=== PATIENT | female | born 1940 | race Caucasian/White ===

== ENCOUNTER 2023-12-10 20:16 | Emergency (ER) | payer MEDICARE, BC ==
[~2023-12-10] VITALS: Ht 165.1 cm; Wt 68.0 kg
[2023-12-10 20:30] VITALS: O2SAT 97
[2023-12-10 21:10] LABS: BASOPHILS # (AUTO) 0.1 K/UL (0.0-0.2); BASOPHILS % (AUTO) 0.4 % (0.0-2.0); EOSINOPHILS # (AUTO) 0.2 K/uL (0.0-0.7); EOSINOPHILS % (AUTO) 1.4 % (0.0-7.0); HEMATOCRIT 49.2 % (31.2-41.9); LYMPHOCYTES # (AUTO) 2.7 K/uL (0.8-4.8); LYMPHOCYTES % (AUTO) 20.9 % (20.5-51.5); MEAN CORPUSCULAR HEMOGLOBIN 25.4 uug (24.7-32.8); MEAN CORPUSCULAR HGB CONC 33 g/dL (32.3-35.6); MONOCYTES # (AUTO) 1.3 K/uL (0.1-1.30); MONOCYTES % (AUTO) 10.1 % (0.0-11.0); NEUTROPHILS # (AUTO) 8.8 K/uL (1.8-8.9); NEUTROPHILS % (AUTO) 67.2 % (38.5-71.5); PLATELET COUNT (AUTO) 308 K/uL (179-408); RED BLOOD CELL COUNT(AUTO) 6.31 MIL/uL (3.63-4.92); RED CELL DISTRIBUTION WIDTH 15.8 % (12.3-17.7); WHITE BLOOD COUNT (AUTO) 13.1 K/uL (3.8-11.8)
[2023-12-10 21:12] LABS: DIFFERENTIAL COMMENT 1
[2023-12-10 21:23] LABS: ALANINE AMINOTRANSFERASE 32 U/L (14-59); ALBUMIN 4.2 g/dL (3.4-5.0); ALKALINE PHOSPHATASE 114 U/L (50-136); ASPARTATE AMINOTRANSFERASE 26 U/L (15-37); BILIRUBIN,TOTAL 0.7 mg/dL (0.2-1.0); CALCIUM 9.8 mg/dL (8.5-10.1); CARBON DIOXIDE 23 mmol/L (21-32); CHLORIDE 102 mmol/L (98-107); CREATININE 0.8 mg/dL (0.6-1.3); GLUCOSE 147 mg/dL (74-106); POTASSIUM 4.4 mmol/L (3.5-5.1); SODIUM SERUM 139 mmol/L (136-145); TOTAL PROTEIN, SERUM 8.9 g/dL (6.4-8.2); UREA NITROGEN, BLOOD 21 mg/dL (7-18)
[2023-12-10] MEDS: CEFTRIAXONE 1 G VIAL IM ONE (21:30)
[2023-12-10] MEDS ORDERED: CEFTRIAXONE /D5W 50ML IVPB **ER PYXIS IV ONE (21:44)
[2023-12-10] MEDS ORDERED: CEFTRIAXONE 1 G in IV DEXTROSE 5% 50 ML IV ONE (21:45)
[2023-12-10] MEDS ORDERED: CEFTRIAXONE 1 G VIAL ONE ×2 (21:49→21:50)
[2023-12-10] MEDS ORDERED: LIDOCAINE HCL 1% 20 ML VIAL ONE (21:49)
[2023-12-10] MEDS ORDERED: CEPH500T PO (22:00)
== END 2023-12-10 22:15 | disposition left against medical advice (07) ==
LOC: ER 20:19
DX: L03.114 Cellulitis of left upper limb (principal); I50.9 Heart failure, unspecified; Z98.890 Other specified postprocedural states; W57.XXXA Bitten or stung by nonvenomous insect and other nonvenomous arthropods, initial encounter; Y93.89 Activity, other specified; Y92.89 Other specified places as the place of occurrence of the external cause; Y99.8 Other external cause status
CPT/HCPCS: 99284; 80053; 85025; 87040; 36415; 73130; 96372; 83605; J0696 ×2; J3490; A4606; A4663